=== PATIENT | male | born 1960 | race Caucasian/White ===

== ENCOUNTER → 2022-01-04 | Outpatient (CLI) | payer OTHER ==
[2022-01-04 16:07] LABS: BUN/CREATININE RATIO 16 (0-10)
[2022-01-05 08:14] LABS: CHOLESTEROL, TOTAL 179 mg/dL (100-199); HDL CHOLESTEROL 31 mg/dL (>39); LDL CHOLESTEROL CALC 127 mg/dL (0-99); LDL/HDL RATIO 4.1 ratio (0.0-3.6); T. CHOL/HDL RATIO 5.8 ratio (0.0-5.0); TRIGLYCERIDES 117 mg/dL (0-149)
[2022-01-05 09:14] LABS: CREATININE, URINE 18.8 mg/dL (Not Estab.); MICROALB/CREAT RATIO <16 (0-29)
== END ==
LOC: LAB 12:24
PROVIDERS: Nurse Practitioner
DX: E11.8 Type 2 diabetes mellitus with unspecified complications (principal)
CPT/HCPCS: 80048; 80061; 82043; 82570; 82607; 84443

== ENCOUNTER → 2022-02-01 | Outpatient (CLI) | payer OTHER | LOC: KOH-I 12:50 | DX: M54.2 Cervicalgia (principal); I10 Essential (primary) hypertension; E55.9 Vitamin D deficiency, unspecified; E78.5 Hyperlipidemia, unspecified; N40.1 Benign prostatic hyperplasia with lower urinary tract symptoms; M47.812 Spondylosis without myelopathy or radiculopathy, cervical region | CPT/HCPCS: 72040 ==

== ENCOUNTER → 2022-02-06 | Outpatient (CLI) | payer OTHER | LOC: US 11:00 | DX: N40.1 Benign prostatic hyperplasia with lower urinary tract symptoms (principal); R33.9 Retention of urine, unspecified; G62.9 Polyneuropathy, unspecified; R39.15 Urgency of urination; Z85.820 Personal history of malignant melanoma of skin ==

== ENCOUNTER → 2022-03-23 | Outpatient (CLI) | payer OTHER ==
[2022-03-23 08:56] LABS: HEMOGLOBIN 16.4 gm/dl (14.0-17.5); RED BLOOD COUNT 4.99 M/UL (4.20-5.50); WHITE BLOOD COUNT 11.9 K/UL (4.5-11.0)
[2022-03-23 09:16] LABS: BUN/CREATININE RATIO 20 (0-10)
== END ==
LOC: LAB 08:13
DX: E78.2 Mixed hyperlipidemia (principal); E55.9 Vitamin D deficiency, unspecified; E11.9 Type 2 diabetes mellitus without complications; N40.1 Benign prostatic hyperplasia with lower urinary tract symptoms
CPT/HCPCS: 36415; 80053; 80061; 82607; 82746; 83036; 83540; 84153; 84439; 84443; 84550; 85027; 85610